=== PATIENT | female | born 1990 | race American Indian/Alaskan Native ===

== ENCOUNTER 2017-05-03 06:18 | Emergency (ER) | payer MEDICAID, OTHER ==
[2017-05-03 06:32] VITALS: RESP 16; TEMP 97.9
[2017-05-03] MEDS ORDERED: Sodium Chloride 0.9% 1,000 ML IV ONE (06:36)
--- NOTE | 2017-05-03 06:38 | C.PDOC ---
History Of Present Illness 26 year old female who presents to the ER with a complaint of intermittent, cramping, severe, abdominal pain that began tonight. Denies nausea, vomiting, diarrhea, dysuria, or vaginal bleeding. Patient's LMP was 04/15. Chief Complaint (Nursing): Abdominal Pain History Per: Patient History/Exam Limitations: no limitations Onset/Duration Of Symptoms: Hrs, Intermittent Episodes Current Symptoms Are (Timing): Still Present Severity: Severe Location Of Pain/Discomfort: LUQ, LLQ Radiation Of Pain To:: None Quality Of Discomfort: Unable To Describe Associated Symptoms: denies: Fever, Chills, Nausea, Vomiting, Diarrhea, Urinary Symptoms Exacerbating Factors: None Alleviating Factors: None Recent travel outside of the [place]: No Abnormal Vaginal Bleeding: No Past Medical History Reviewed: Historical Data, Nursing Documentation, Vital Signs Vital Signs: Last Vital Signs Temp 97.9 F 05/03/17 06:28 Pulse 77 05/03/17 06:28 Resp 16 05/03/17 06:28 BP 162/96 H 05/03/17 06:28 Pulse Ox 100 05/03/17 06:42 - Medical History PMH: Asthma, Migraine Surgical History: No Surg Hx Family History: States: Unknown Family Hx - Social History Hx Tobacco Use: No Hx Alcohol Use: Yes Hx Substance Use: No - Immunization History Hx Tetanus Toxoid Vaccination: No Hx Influenza Vaccination: No Hx Pneumococcal Vaccination: No Review Of Systems Constitutional: Negative for: Fever, Chills Cardiovascular: Negative for: Chest Pain, Palpitations Respiratory: Negative for: Shortness of Breath Gastrointestinal: Positive for: Abdominal Pain. Negative for: Nausea, Vomiting , Diarrhea Genitourinary: Negative for: Dysuria, Incontinence, Hematuria, Vaginal Bleeding Physical Exam - Physical Exam Appears: Non-toxic, Other (Mild distress) Skin: Normal Color, Warm, Dry Head: Atraumatic, Normacephalic Oral Mucosa: Moist Chest: Symmetrical, No Tenderness Cardiovascular: Rhythm Regular, No Murmur Respiratory: Normal Breath Sounds, No Rales, No Rhonchi, No Wheezing Gastrointestinal/Abdominal: Soft, Tenderness (LLQ, LUQ), No Guarding, No Rebound Neurological/Psych: Oriented x3, Normal Speech, Normal Cognition ED Course And Treatment O2 Sat by Pulse Oximetry: 100 (Room air) Pulse Ox Interpretation: Normal Progress Note: CT abd/pel, blood work, and urinalysis ordered. Toradol and IV fluids administered. Disposition - Disposition Disposition Time: 07:00 Condition: STABLE Forms: [employer] [facility] ([place]ese) - Clinical Impression Clinical Impression: Abdominal pain - Scribe Statement The provider has reviewed the documentation as recorded by the Scribe Ousmane Braun All medical record entries made by the Scribe were at my direction and personally dictated by me. I have reviewed the chart and agree that the record accurately reflects my personal performance of the history, physical exam, medical decision making, and the department course for this patient. I have also personally directed, reviewed, and agree with the discharge instructions and disposition.
[2017-05-03 07:00] LABS: BASO % 0.6 % (0.0-2.0); EOS # 0.4 K/uL (0.0-0.7); EOS % 6.6 % (0.0-4.0); HEMATOCRIT 33.5 % (34.0-47.0); LYMPH # 2.5 K/uL (1.0-4.3); MEAN CELL VOLUME 85.9 fL (81.0-99.0); MEAN CORPUSCULAR HGB CONC 32.6 g/dL (33.0-37.0); MONO # 0.5 K/uL (0.0-0.8); NRBC % 0.1 % (0.0-2.0); RED CELL DISTRIBUTION WIDTH 14.2 % (11.5-14.5); WHITE BLOOD COUNT 5.5 K/uL (4.8-10.8)
[2017-05-03 07:01] LABS: CHLORIDE 104 mmol/L (98-107); SODIUM 139 mmol/L (132-148)
[2017-05-03 07:02] LABS: POTASSIUM 3.8 mmol/L (3.6-5.2)
[2017-05-03 07:03] LABS: GFR AFRICAN-AMERICAN > 60
[2017-05-03 07:04] LABS: ALB/GLOB RATIO 1.1 (1.0-2.1); ALKALINE PHOSPHATASE 83 U/L (38-126); ALT/SGPT 27 U/L (9-52); AST/SGOT 23 U/L (14-36); BILIRUBIN,TOTAL 0.5 mg/dL (0.2-1.3); BLOOD UREA NITROGEN 14 mg/dL (7-17); CARBON DIOXIDE 25 mmol/L (22-30); GLUCOSE,RANDOM 87 mg/dL (65-105); TOTAL PROTEIN 6.3 g/dL (6.3-8.3)
[2017-05-03 07:05] LABS: CALCIUM 8.9 mg/dl (8.6-10.4)
[2017-05-03] MEDS ORDERED: Iohexol 240 (50 ml) PO ONE (07:44)
[2017-05-03] MEDS ORDERED: Iohexol 240 (50 ml) ONE (07:46)
[2017-05-03 07:59] LABS: RBC URINE 4 /hpf (0-3); URINE BILIRUBIN NEGATIVE (NEGATIVE); URINE BLOOD NEGATIVE (NEGATIVE); URINE COLOR Yellow (YELLOW); URINE GLUCOSE (UA) NORMAL (Normal); URINE KETONE NEGATIVE (NEGATIVE); URINE PROTEIN NEGATIVE (NEGATIVE); URINE UROBILINOGEN NORMAL mg/dL (0.2-1.0); WBC URINE 11 /hpf (0-5)
[2017-05-03 08:02] LABS: URINE LEUKOCYTE ESTERASE 1+ Leu/uL (Negative)
[2017-05-03] MEDS ORDERED: Iodixanol 320 MG/ML 100 ML BOTTLE IV ONE (09:03)
--- NOTE | 2017-05-03 09:50 | CT ---
PROCEDURE: CT Abdomen and Pelvis with oral and IV contrast. HISTORY: left sided abd pain/ tenderness COMPARISON: None available. TECHNIQUE: Contiguous axial images of the abdomen and pelvis. Oral and IV contrast was administered. Coronal and Sagittal reformats generated and reviewed. Contrast dose: 100 mL Visipaque Radiation dose: Total exam DLP = 746.01 mGy-cm. This CT exam was performed using one or more of the following dose reduction techniques: Automated exposure control, adjustment of the mA and/or kV according to patient size, and/or use of iterative reconstruction technique. FINDINGS: LOWER THORAX: No visible consolidation, pleural effusion, or pneumothorax. LIVER: 4 mm right hepatic lobe calcification, likely granuloma. GALLBLADDER AND BILE DUCTS: Unremarkable. PANCREAS: Unremarkable. SPLEEN: Unremarkable. ADRENALS: Unremarkable. KIDNEYS AND URETERS: The kidneys enhance symmetrically. No hydronephrosis or obstructing renal calculus. BLADDER: The urinary bladder appears unremarkable. REPRODUCTIVE: Uterus is present. Suspect enlarged right ovary and or ovarian cyst. APPENDIX: The presumed appendix appears within normal limits of caliber. No secondary signs of acute appendicitis. BOWEL: The stomach is nondistended. The bowel loops appear within normal limits of caliber without evidence of intestinal obstruction. Moderate constipation. PERITONEUM: No significant free fluid. No definite free air. LYMPH NODES: No bulky lymphadenopathy identified. VASCULATURE: No aortic aneurysm. BONES: No acute osseous abnormality is detected. OTHER FINDINGS: None. IMPRESSION: Suspect enlarged right ovary and or ovarian cyst. Recommend pelvic ultrasound for further evaluation. Moderate constipation.
[2017-05-03 10:04] VITALS: BP 149/99; PULSE 74; O2SAT 100
== END 2017-05-03 10:39 | disposition home or self-care (01) ==
LOC: C.ER 06:18
DX: N39.0 Urinary tract infection, site not specified (principal); N83.201 Unspecified ovarian cyst, right side; K59.00 Constipation, unspecified
CPT/HCPCS: 74177; 80053; 81001; 83690; 84703; 85025; 96361; 96374; 99285; J1885; J7040; Q9966; Q9967

== ENCOUNTER 2017-09-23 11:11 | Emergency (ER) | payer SELFPAY ==
[2017-09-23 11:36] VITALS: BMI 30.2
[2017-09-23 11:38] VITALS: O2SAT 100
[2017-09-23] MEDS ORDERED: Sodium Chloride 0.9% 1,000 ML IV ONE (12:13)
[2017-09-23] MEDS ORDERED: Sodium Chloride 0.9% 1,000 ML ONE (12:27)
[2017-09-23 12:47] LABS: BASO # 0.1 K/uL (0.0-0.2); BASO % 1.7 % (0.0-2.0); EOS # 0.4 K/uL (0.0-0.7); HEMOGLOBIN 11.8 g/dL (11.0-16.0); LYMPH # 2.1 K/uL (1.0-4.3); LYMPH % 39.9 % (20.0-40.0); MEAN CORPUSCULAR HEMOGLOBIN 27.2 pg (27.0-31.0); MEAN PLATELET VOLUME 7.9 fL (7.2-11.7); MONO # 0.4 K/uL (0.0-0.8); MONO % 7.8 % (0.0-10.0); NEUT # 2.3 K/uL (1.8-7.0); NEUT % 43.6 % (50.0-75.0); RBC 4.33 Mil/uL (3.80-5.20); RED CELL DISTRIBUTION WIDTH 13.7 % (11.5-14.5); WHITE BLOOD COUNT 5.3 K/uL (4.8-10.8)
[2017-09-23 12:49] LABS: HCG,QUALITATIVE URINE NEGATIVE (NEGATIVE)
[2017-09-23 12:51] LABS: SQUAMOUS EPITHIAL 2 /hpf (0-5); URINE BACTERIA RARE (<OCC); URINE BILIRUBIN NEGATIVE (NEGATIVE); URINE BLOOD NEGATIVE (NEGATIVE); URINE CLARITY Clear (Clear); URINE COLOR Straw (YELLOW); URINE GLUCOSE (UA) NORMAL (Normal); URINE LEUKOCYTE ESTERASE 1+ Leu/uL (Negative); URINE NITRATE NEGATIVE (NEGATIVE); URINE PROTEIN NEGATIVE (NEGATIVE); URINE UROBILINOGEN NORMAL mg/dL (0.2-1.0)
[2017-09-23 12:59] LABS: BLOOD UREA NITROGEN 9 mg/dL (7-17); GFR AFRICAN-AMERICAN > 60; GFR NON-AFRICAN AMERICAN > 60
[2017-09-23 13:13] LABS: PROTHROMBIN TIME 10.9 SECONDS (9.7-12.2)
--- NOTE | 2017-09-23 13:22 | RAD ---
HISTORY: chest pain COMPARISON: No prior. TECHNIQUE: Chest PA and lateral FINDINGS: LUNGS: No active pulmonary disease. PLEURA: No significant pleural effusion identified. No pneumothorax apparent. CARDIOVASCULAR: Normal. OSSEOUS STRUCTURES: No significant abnormalities. VISUALIZED UPPER ABDOMEN: Normal. OTHER FINDINGS: None. IMPRESSION: No active disease.
[2017-09-23 14:08] VITALS: RESP 18; TEMP 98.5
[2017-09-23] MEDS ORDERED: Iodixanol 320 MG/ML 100 ML BOTTLE IV ONE (15:04)
--- NOTE | 2017-09-23 15:19 | C.PDOC ---
History Of Present Illness 27 year old female, with PMHx of asthma, presents to ED for evaluation of chest pain that developed prior to arrival while at work. Pt states that pain is constant, non-radiating, worse with movement, and is described as tightness, states "not sure if the pain is from asthma". Denies headache, dizziness, recent illness, neck pain, abdominal pain, n/v/d, cough, shortness of breath, palpitations, diaphoresis, back pain, lower extremity pain/swelling, recent travels, recent surgery, or recent prolonged immobilization. No history of cardiac disease. No risk factors for PE/DVT. Time Seen by Provider: 09/23/17 11:57 Chief Complaint (Nursing): Chest Pain History Per: Patient History/Exam Limitations: no limitations Onset/Duration Of Symptoms: Days Current Symptoms Are (Timing): Still Present Quality: "Pain" Associated Symptoms: denies: Nausea, Dyspnea, Diaphoresis, Syncope Modifying Factors: None Exacerbating Factors: Movement Alleviating Factors: None Recent travel outside of the [place]: No Additional History Per: Patient Past Medical History Reviewed: Historical Data, Nursing Documentation, Vital Signs Vital Signs: Last Vital Signs Temp 98.5 F 09/23/17 14:07 Pulse 68 09/23/17 14:07 Resp 18 09/23/17 14:07 BP 146/90 09/23/17 14:07 Pulse Ox 100 09/23/17 15:22 - Medical History PMH: Asthma, Migraine Family History: States: Unknown Family Hx - Social History Hx Tobacco Use: No Hx Alcohol Use: Yes Hx Substance Use: No - Immunization History Hx Tetanus Toxoid Vaccination: No Hx Influenza Vaccination: No Hx Pneumococcal Vaccination: No Review Of Systems Except As Marked, All Systems Reviewed And Found Negative. Constitutional: Negative for: Fever, Chills Cardiovascular: Positive for: Chest Pain. Negative for: Palpitations, Edema, Light Headedness Respiratory: Negative for: Cough, Shortness of Breath Gastrointestinal: Negative for: Nausea, Vomiting, Abdominal Pain, Diarrhea Neurological: Negative for: Weakness, Numbness, Headache, Dizziness Physical Exam - Physical Exam Appears: Non-toxic, No Acute Distress Skin: Normal Color, Warm, Dry, No Rash Head: Normacephalic Eye(s): bilateral: PERRL Oral Mucosa: Moist, No Drooling Throat: No Erythema, No Drooling Neck: Trachea Midline, Supple Chest: Symmetrical, No Deformity, No Tenderness, No Ecchymosis Cardiovascular: Rhythm Regular, No Murmur, No JVD, Other ((-) carotid bruits B/L ) Respiratory: No Accessory Muscle Use, No Rales, No Rhonchi, No Stridor, No Wheezing Gastrointestinal/Abdominal: Soft, No Tenderness, No Distention, No Guarding Extremity: Normal ROM, No Pedal Edema, No Deformity, No Swelling Neurological/Psych: Oriented x3, Normal Speech ED Course And Treatment - Laboratory Results Result Diagrams: 09/23/17 12:43 09/23/17 12:43 Lab Interpretation: Normal ECG: Interpreted By Me, Viewed By Me (and ed attending) Interpretation Of ECG: SR@66/min,NAD, diffuse P wave inversion, no acute ST-T changes. O2 Sat by Pulse Oximetry: 100 (RA) Pulse Ox Interpretation: Normal - Radiology CXR: Interpreted by Me, Viewed By Me CXR Interpretation: Yes: No Acute Disease Progress Note: EKG, CXR, blood work, UA, angio chest CT was ordered and reviewed. Pt was Toradol, Pepcid, and IV fluids. At 12:45, After blood work review at D-Dimer and appears high. CTA chest r/o PE ordered. At 15:30, Pt was OBS in ED for 4 hours and appears asymptomatic at present time. Afebrile, hemodynamicaly stable. Non-toxic. PulsEOx 99% RA. ENT: no acute findings. Lungs: CTA B/L, BS equal B/L. CVS: (+)S1S2, reg. Abd: benign. Neurologicaly intact. CTA r/p PE review and appears normal. Pt has clinical findings c/w chest pain, HTN. Access Representative dvised. ref. to f/u with PMD, card in 2-3 days for re- eavl. return to ED if any worsening or new changes. Disposition Counseled Patient/Family Regarding: Studies Performed, Diagnosis, Need For Followup - Disposition Referrals: [facility] [Outside] Disposition: HOME/ ROUTINE Disposition Time: 15:55 Condition: STABLE Additional Instructions: FOLLOW UP WITH PMD, CARDIOLOGY IN 1-2 DAYS FOR RE-EVALUATION RETURN TO ED IF ANY WORSENING OR NEW CHANGES. Instructions: Chest Pain (ED), Hypertension (ED) Forms: [facility] (Irish), Work Excuse - Clinical Impression Clinical Impression: Chest pain, Hypertension - PA / DESIGN CONSULTANT / Resident Statement MD/DO has reviewed & agrees with the documentation as recorded. - Scribe Statement The provider has reviewed the documentation as recorded by the Katelynibkecia Perez All medical record entries made by the Katelynibe were at my direction and personally dictated by me. I have reviewed the chart and agree that the record accurately reflects my personal performance of the history, physical exam, medical decision making, and the department course for this patient. I have also personally directed, reviewed, and agree with the discharge instructions and disposition.
--- NOTE | 2017-09-23 16:12 | CT ---
CTA chest PE protocol Indication: chest pain, high D-Dimer Technique: Contiguous axial images were obtained through the chest with intravenous contrast enhancement. Sagittal and coronal reconstructions were generated and reviewed. This CT exam was performed using 1 or more of the falling dose reduction techniques: Automated exposure control, adjustment of the MAA and/or kV according to patient size, and/or use of iterative reconstruction technique. IV Contrast: 100 mL Visipaque Radiation dose (DLP): 392.54 MGy-cm. Comparison: Chest x-ray performed 09/23/17 Findings: Visualized portions of the inferior thyroid gland appear unremarkable. The mediastinal and hilar vascular structures appear within normal limits. The heart appears within normal limits of size. No large central or segmental pulmonary embolus evident. No focal consolidation. No pleural effusion. No pneumothorax. No suspicious pulmonary nodules measuring greater than 5 mm. Limited visualized portions of the upper abdomen: Punctate calcification right hepatic lobe, likely granuloma. No acute osseous abnormality is detected. Impression: No large central or segmental pulmonary embolus identified.
[2017-09-23 16:41] VITALS: BP 148/86; PULSE 72
--- NOTE | 2017-09-24 15:03 | CARD ---
APPROVED REPORT EKG Measurement Heart [id number] ND [id number] [id number] <Conclusion> Unusual P axis, possible ectopic atrial rhythm Abnormal ECG
== END 2017-09-23 16:40 | disposition home or self-care (01) ==
LOC: C.ER 11:11
DX: R07.9 Chest pain, unspecified (principal); I10 Essential (primary) hypertension
CPT/HCPCS: 71046; 71275; 80048; 81001; 84484; 84703; 85025; 85378; 85610; 85730; 93005; 96361; 96374; 96375; 99285; J1885; J7040; Q9967

== ENCOUNTER 2017-11-04 18:39 | Emergency (ER) | payer SELFPAY ==
[2017-11-04 18:40] VITALS: BMI 30.2
[2017-11-04 20:03] VITALS: BP 154/98; PULSE 86; RESP 20; TEMP 98.9; O2SAT 100
== END 2017-11-04 21:04 | disposition left against medical advice (07) ==
LOC: C.ER 18:39
DX: Z02.89 Encounter for other administrative examinations (principal); R10.9 Unspecified abdominal pain